=== PATIENT | female | born 1965 | race Caucasian/White ===

== ENCOUNTER → 2016-04-24 | Outpatient (REF) | payer OTHER ==
[~2016-04-24] MED LIST: LIAL1.2T PO; PRED10TA PO
== END ==
LOC: M LAB REF 09:11
PROVIDERS: ATTEND Internal Medicine Gastroenterology
DX: K51.90 Ulcerative colitis, unspecified, without complications (principal)

== ENCOUNTER → 2016-09-04 | Outpatient (CLI) | payer OTHER ==
--- NOTE | 2016-09-04 16:40 | REPMRS ---
Patient History The patient states she had a clinical breast exam in 08/2016. Family history of breast cancer in maternal aunt, colorectal cancer in paternal grandmother, and ovarian cancer in maternal grandmother. Benign radio exam breast specimen of the left breast, August 22, 2013. Benign stereotatic loc for ea lesion of the left breast, August 22, 2013. Digital Woman Screen Mammo: September 04, 2016 - Exam #: [id number] Bilateral CC and MLO view(s) were taken. Technologist: Leandra Rae, Technologist Prior study comparison: September 13, 2015, right breast digital mammo diagnostic unilateral, performed at [facility]. August 30, 2015, digital woman screen mammo performed at [facility]. July 07, 2014, digital woman screen mammo performed at [facility]. FINDINGS: The breast tissue is heterogeneously dense. This may lower the sensitivity of mammography. There is a needle biopsy marker clip in the left breast. There is a moderate amount of heterogeneously dense fibroglandular tissue which is fairly symmetric. There is no interval development of dominant mass, architectural distortion, or clustered microcalcification typical of malignancy. There has been no change in the appearance of the mammogram from the prior studies. ASSESSMENT: BI-RADS/ACR category 1 mammogram. Negative. Recommendation Routine screening mammogram of both breasts in 1 year (for women over age 40). This mammogram was interpreted with the aid of an FDA-approved computer-aided dectection system. Electronically Signed By: Ladarius Verma MD 09/04/16 1640
== END ==
LOC: M WHC 14:50
PROVIDERS: ATTEND Nurse Practitioner Women's Health
DX: Z12.31 Encounter for screening mammogram for malignant neoplasm of breast (principal); Z86.018 Personal history of other benign neoplasm

== ENCOUNTER → 2016-09-04 | Outpatient (REF) | payer OTHER | LOC: M SFHCWAGY 15:31 | PROVIDERS: ATTEND Nurse Practitioner Women's Health | DX: Z12.4 Encounter for screening for malignant neoplasm of cervix (principal) ==

== ENCOUNTER 2018-03-03 09:43 | Day surgery (SDC) | payer BC ==
[~2018-03-03] VITALS: Ht 154.9 cm; Wt 71.1 kg
[~2018-03-03 09:43] MED LIST changes: +APRI0.37 PO; +IBUP-1114 PO; +LIDOCAINE 2% INJ 100 MG/5 ML SDV (FOR ANES.) As Ordered ONE; +LOSA50TA88 PO; +METO25TA4 PO; +NS 1,000 ML IV ONE; +PROPOFOL 200 MG/20 ML VIAL As Ordered ONE
[2018-03-03] MEDS ORDERED: PROPOFOL 200 MG/20 ML VIAL As Ordered ONE (10:34)
--- NOTE | 2018-03-03 10:57 | ROOR ---
Patient Name: Alda Cummings Procedure Date: 03/03/2018 10:21 AM Date of : 1965 Age: 52 Room: [facility] Gender: Female Note Status: Finalized Procedure: Total Colonoscopy to cecum + Biopsies Indications: High risk colon cancer surveillance: Ulcerative colitis Providers: Kelechi Muller MD Referring MD: Dina Velez Requesting Provider: Medicines: Monitored Anesthesia Care Complications: No immediate complications. Procedure: Pre-Anesthesia Assessment: - The heart rate, respiratory rate, oxygen saturations, blood pressure, adequacy of pulmonary ventilation, and response to care were monitored throughout the procedure. The Colonoscope was introduced through the anus and advanced to the cecum, identified by appendiceal orifice and ileocecal valve. The colonoscopy was performed without difficulty. The patient tolerated the procedure well. The quality of the bowel preparation was excellent. Findings: The perianal and digital rectal examinations were normal. Diffuse pseudopolyps were found in the recto-sigmoid colon, in the sigmoid colon, in the descending colon, in the transverse colon, at the hepatic flexure and in the ascending colon. Background biopsies were taken for histology with a cold large-capacity forceps from the ascending colon, transverse colon, descending colon and rectosigmoid colon. These biopsy specimens were sent to Pathology. The exam was otherwise without abnormality on direct and retroflexion views. Impression: - Pseudopolyps in the recto-sigmoid colon, in the sigmoid colon, in the descending colon, in the transverse colon, at the hepatic flexure and in the ascending colon. - The examination was otherwise normal on direct and retroflexion views. - Background biopsies were taken from the ascending colon, transverse colon, descending colon and rectosigmoid colon. - The exam was otherwise normal to the cecum. Recommendation: - Patient has a contact number available for emergencies. The signs and symptoms of potential delayed complications were discussed with the patient. Return to normal activities tomorrow. Written discharge instructions were provided to the patient. - Resume previous diet. - Discharge patient to home. - Continue present medications. - Await pathology results. - Telephone GI clinic for pathology results in 1 week. - Check Portal Online for Path Results.([email or web address]) - Return to referring physician. - The findings and recommendations were discussed with the patient's family. Kelechi Muller MD Kelechi Muller MD 03/03/2018 10:57:02 AM This report has been signed electronically. Number of Addenda: 0 Note Initiated On: 03/03/2018 10:21 AM Estimated Blood Loss: Estimated blood loss: none.
[2018-03-03 11:23] VITALS: BP 129/69
== END 2018-03-03 11:26 | disposition home or self-care (01) ==
LOC: M OPP 09:43
PROVIDERS: ATTEND Internal Medicine Gastroenterology
DX: K51.90 Ulcerative colitis, unspecified, without complications (principal); D12.2 Benign neoplasm of ascending colon; D12.3 Benign neoplasm of transverse colon; D12.4 Benign neoplasm of descending colon; D12.7 Benign neoplasm of rectosigmoid junction; Z88.2 Allergy status to sulfonamides; Z79.899 Other long term (current) drug therapy

== ENCOUNTER → 2020-02-22 | Outpatient (REF) | payer OTHER ==
[~2020-02-22] MED LIST changes: -LIDOCAINE 2% INJ 100 MG/5 ML SDV (FOR ANES.) As Ordered ONE; -NS 1,000 ML IV ONE; +PRED-351 PO; -PRED10TA PO; -PROPOFOL 200 MG/20 ML VIAL As Ordered ONE
== END ==
LOC: M LAB REF 12:35
PROVIDERS: ATTEND Physician Assistant
DX: Z11.59 Encounter for screening for other viral diseases (principal)

== ENCOUNTER → 2021-05-22 | Outpatient (CLI) | payer OTHER ==
[~2021-05-22] MED LIST changes: +LOSA50TA28 PO; -LOSA50TA88 PO
== END ==
LOC: M LABSMTC 09:38
PROVIDERS: ATTEND Anesthesiology
DX: Z11.52 Encounter for screening for COVID-19 (principal); Z20.822 Contact with and (suspected) exposure to COVID-19

== ENCOUNTER 2021-05-27 07:53 | Day surgery (SDC) | payer OTHER ==
[~2021-05-27] VITALS: Ht 154.9 cm; Wt 70.8 kg
[~2021-05-27 07:53] MED LIST changes: +NS 1,000 ML IV ONE
[2021-05-27] MEDS ORDERED: propofoL 200 MG/20 ML VIAL As Ordered ONE ×2 (09:40→09:51)
[2021-05-27] MEDS ORDERED: LIDOCAINE 2% 100MG/5ML SDV (FOR ANES.) As Ordered ONE (09:40)
[2021-05-27 10:30] VITALS: BP 128/78
== END 2021-05-27 10:32 | disposition home or self-care (01) ==
LOC: M OPP 07:53
PROVIDERS: ATTEND Internal Medicine Gastroenterology
DX: K51.00 Ulcerative (chronic) pancolitis without complications (principal); K57.30 Diverticulosis of large intestine without perforation or abscess without bleeding; K64.0 First degree hemorrhoids; K51.90 Ulcerative colitis, unspecified, without complications; Z09 Encounter for follow-up examination after completed treatment for conditions other than malignant neoplasm; I71.4 Abdominal aortic aneurysm, without rupture; Z79.899 Other long term (current) drug therapy; Z88.2 Allergy status to sulfonamides; Z80.42 Family history of malignant neoplasm of prostate

== ENCOUNTER → 2021-10-29 | Outpatient (CLI) | payer OTHER ==
[~2021-10-29] MED LIST changes: -NS 1,000 ML IV ONE
== END ==
LOC: M LAB 16:28
PROVIDERS: ATTEND Internal Medicine Gastroenterology
DX: R19.7 Diarrhea, unspecified (principal)